=== PATIENT | female | born 1970 | race Caucasian/White ===

== ENCOUNTER 2018-04-30 06:12 | Day surgery (SDC) | payer BC ==
[~2018-04-30 06:12] MED LIST: Buffered Lidocaine 0.9% SYRIN* 5 ML/SYR SYRINGE INTRADERM ONE; Clindamycin 900 MG IVPREMIX(* 900 MG/50 ML SDV IV ONE
[2018-04-30] MEDS ORDERED: Lidocaine 2% PF * 5 ML VIAL ONE ×2 (06:35→06:48)
[2018-04-30] MEDS ORDERED: Propofol* 10 MG/ML 20 ML BTL IV PUSH ONE (06:35)
[2018-04-30] MEDS ORDERED: Sterile Water for Inj* 20 ML ONE (06:48)
[2018-04-30] MEDS ORDERED: ROPIVACAINE 5 MG/ML 30 ML BTL (0.5%) ONE (06:48)
[2018-04-30] MEDS ORDERED: Midazolam* 1 MG/ML 2 ML VIAL (2 MG) ONE ×2 (06:49→08:14)
[2018-04-30] MEDS ORDERED: fentaNYL* 50 MCG/ML 2 ML VIAL (100 MCG VIAL) ONE (06:49)
[2018-04-30] MEDS ORDERED: Mepivacaine 2% MPF (20 MG/ML)* 20 ML MPF ONE (07:13)
[2018-04-30] MEDS ORDERED: Bupivacaine 0.5% PF 10 ML VIAL INJ ONE (07:38)
[2018-04-30] MEDS ORDERED: KETAMINE HCL* 50 MG/ML 10 ML VIAL ONE (07:56)
[2018-04-30] MEDS ORDERED: Propofol* 500 MG/50 ML BTL ONE (07:57)
[2018-04-30] MEDS ORDERED: Dexamethasone IV* 4 MG/ML 1 ML (4 MG) ONE (08:12)
[2018-04-30] MEDS ORDERED: Naloxone* 0.4 MG/ML 1 ML VIAL IV PRN (09:14)
[2018-04-30] MEDS ORDERED: Ondansetron INJ* 2 MG/ML VIAL ONE (09:15)
[2018-04-30] MEDS ORDERED: Metoclopramide IV* 5 MG/ML 2 ML VIAL ONE (09:15)
[2018-04-30] MEDS ORDERED: HYDROmorphone INJ* 0.5 MG/0.5 ML SYRINGE ONE ×4 (09:38→11:35)
[2018-04-30] MEDS: HYDROmorphone INJ* 0.5 MG/0.5 ML SYRINGE IV PRN ×3 (10:56→11:35)
--- NOTE | 2018-04-30 11:31 | RAD ---
CPT II Codes: G9500 INDICATION: Allograft placement of the talus. Fluoroscopic services provided for referring physician. 66 seconds of fluoroscopy time was used. 10 spot images demonstrates internal fixation osteotomy of the tibia and internal fixation of the talus. IMPRESSION: Fluoroscopic services provided for referring physician for allograft treatment of the right talus.
[2018-04-30] MEDS ORDERED: oxyCODONE TAB* 5 MG TAB ONE (11:51)
[2018-04-30 12:11] VITALS: BP 110/64
--- NOTE | 2018-04-30 16:05 | OP ---
Operative Report - Blank - Operative Report Date of Operation: 04/30/18 Note: PATIENT: Dung Calix DATE OF : 1970 DATE OF SURGERY: 04/30/2018 SURGEON: Shlomo Borjas MD ELECTRICAL DESIGN ENGINEER: KIANA Tena, whos assistance was necessary for positioning, retraction, help with instrumentation, and closure. ANESTHESIOLOGIST: Dr. Barboza PREOPERATIVE DIAGNOSIS: Right osteochondral lesion of the talus and ankle instability POSTOPERATIVE DIAGNOSIS: Right osteochondral lesion of the talus and ankle instability OPERATION: 1. Right tibial osteotomy 2. Right ankle open treatment of talar osteochondral lesion with autograft and allograft. 3. Right ankle modified Brostrom procedure lateral ligament reconstruction. ANESTHESIA: LMA + regional nerve block IMPLANTS: Two Arthrex 4.0mm cannulated screws. One Arthrex 4.0mm cancellous solid screw. One Arthrex 2.4mm screw into the graft. TOURNIQUET TIME: Two hours with a well-padded thigh tourniquet at 250 mmHg SPECIMENS: Talus osteochondral fragment to pathology ESTIMATED BLOOD LOSS: minimal COMPLICATIONS: none STATUS: Stable from the operating room to the recovery room and then home. INDICATIONS FOR PROCEDURE: Dung has had long-standing ankle instability and pain from a large osteochondral lesion. Both operative and non operative treatment alternatives were reviewed. Further, the nature and risks of surgery were reviewed in careful detail, in the office as well as the pre-operative holding area. Our discussions regarding the risks of surgery included, but were not limited to, infection, wound problems, nerve injury, neuroma, RSD, persistent symptoms, persistent instability, blood clot, arthritis, need for further surgery, failure of the surgery, and even the remote chance of catastrophic complication , including loss of limb. DESCRIPTION OF PROCEDURE: The patient was seen in the preoperative holding unit and informed written consent was obtained. The appropriate extremity was marked. The patient was then brought to the operating room and carefully positioned on the operating room table. Anesthesia was induced. All bony prominences were padded with great care. A well-padded thigh tourniquet was placed. A chlorhexidine based pre- scrub was performed followed by a chloraprep prep and drape in standard sterile fashion. A surgical safety pause was then conducted in which we confirmed the appropriate patient, extremity, planned procedure, availability of equipment, indication and administration of prophylactic antibiotics, and DVT prophylaxis in the form of a compression boot on the non-surgical extremity. An Esmarch exsanguination of the limb was then performed and the tourniquet inflated. A medial longitudinal incision was made over the medial malleolus and distal tibia. The entire medial malleolus was exposed in preparation for the osteotomy. Two guide pins were placed parallel to the tibiotalar joint, at the level of the physeal scar. Another guide pin was placed retrograde up the medial malleolus, parallel to the medial gutter. The depths of the guidewires were checked and then the guidewires were overdrilled for later placement of 4.0 mm screws. I then placed a guidewire obliquely to plan out the osteotomy. This was checked under fluoroscopy. I then used an oscillating saw to osteotomize the medial tibia to the level of the physeal scar. A large Lambotte osteotome was then placed into this osteotomy cut to complete the osteotomy into the tibiotalar joint. This made and an irregular osteochondral surface at the most distal portion of the osteotomy to later ease reduction of the osteotomy at the end of the case. The medial fragment of the osteotomy was windowed open, providing excellent visualization of the medial talus. The osteochondral lesion was easily identified. The free bone fragment was grossly loose and mobile. I used a 15 blade at the border between the diseased and normal cartilage to define the lesion for excision. I planned out my cuts for the excision of the osteochondral lesion. I then used a small oscillating saw blade to cut out a cuboid block, thus excising the osteochondral lesion. Cold irrigation was used during the saw cuts. I then removed the cuboid osteochondral fragment and measured it. Based on these measurements, I planned out my saw cuts on the talus allograft. I then cut out a cuboid osteochondral fragment from the allograft talus, slightly larger than the elem osteochondral fragment that was excised from the patient. Again, cold irrigation was used during the saw cuts. I then used pulsed irrigation to clean any remaining marrow substance from the allograft. At this point, I obtained tibial autograft bone. I placed this autogenous bone graft into any irregularities at the interface where I would be fixating the allograft, thus providing a nice smooth recipient site surface. I then spent some time trimming the allograft cuboid fragment to fit precisely into the recipient site. Once I had an excellent fit, I placed a mini fragment screw to hold the graft in place. This was countersunk so as to be recessed beneath the chondral surface. I then reduced the tibial osteotomy, and placed two partially threaded 4.0 mm cannulated screws at the physeal scar, which I had already drilled. The saw blade was placed into the oblique osteotomy during fixation of the osteotomy, so as to make sure I had an anatomic reduction. Finally, the fully threaded solid screw up the medial malleolus was placed. Final fluoroscopic images were obtained confirming excellent placement of the graft as well as anatomic reduction of the tibial osteotomy. The wound was then copiously irrigated. I then made a longitudinal incision overlying the distal fibula. This was made in line with the distal fibula and then curving anteriorly in line with the fourth ray. Dissection was carried down through the soft tissues. Superficial hemostasis was obtained. I dissected down to the lateral aspect of the fibula at the periosteal and ligamentous layer and then dissected anteriorly to expose the anterolateral ankle ligaments. We protected the superficial peroneal nerve at all times, which was not visualized within our field. Once we had adequately exposed a pocket anterior to the ligaments, we sharply took the ligaments down off of the anterior and distal aspect of the fibula using a 15 blade. The inferior extensor retinaculum was exposed and protected for subsequent repair later in the procedure. I then utilized a rongeur to make a trough along the fibula to receive the reconstructed ligaments. I then utilized a 0.062 inch K-wire to drill holes in the fibula for a transosseous suture repair of the lateral ligaments utilizing a horizontal mattress suture. Multiple #1 Vicryl sutures were passed through the fibula and then through the ligaments and then back through the fibula. These sutures were all passed with great care taken to appropriately tension both the ATFL as well as the CFL in order to get a nice tight repair. We held the ankle in a dorsiflexed and everted position while the ligaments and sutures were tied down over the fibular bone bridges. These held the ankle in a much improved position with excellent tension on the ligaments. We then utilized a rotational flap from the periosteum overlying the distal fibula to augment the repair. This was sewn down using a horizontal mattress stich overlying the ATFL. We further augmented the repair by bringing the inferior extensor retinaculum up to the fibula. There was a much improved anterior drawer at this point as compared to pre-operatively. The wound was copiously irrigated. The wounds were then closed in a layered fashion utilizing 3-0 Monocryl and 3-0 nylon. At this point, a sterile dressing was applied and the ankle was splinted in a neutral position. The patient was then awakened from anesthesia and transferred to the recovery room in stable condition. There were no complications. All needle and sponge counts were correct at the end of the case. ATTESTATION: I attest I was present and scrubbed and performed the critical portions of the procedure myself. POSTOPERATIVE PLAN: The patient will remain nonweightbearing for at least six weeks. Follow up will be in two weeks for likely suture removal, Steri-Strip application and transition into a short leg cast.
== END 2018-04-30 12:00 | disposition home or self-care (01) ==
LOC: OR 06:12
PROVIDERS: ATTEND Orthopaedic Surgery
DX: M93.271 Osteochondritis dissecans, right ankle and joints of right foot (principal); M25.371 Other instability, right ankle; Z85.850 Personal history of malignant neoplasm of thyroid; I49.3 Ventricular premature depolarization; G89.18 Other acute postprocedural pain
CPT/HCPCS: 76000; 81025; 88304; 88311; A9270-GY; C1713; C1776; J0670; J1100; J1170; J2250; J2405; J2704; J2765; J2795; J3010